=== PATIENT | female | born 1990 | race Caucasian/White ===

== ENCOUNTER 2021-10-31 08:36 | Emergency (ER) | payer OTHER ==
[2021-10-31 08:41] VITALS: BP 141/88; PULSE 78; TEMP 99.2; BMI 30.9
[2021-10-31] MEDS ORDERED: morphine CARPU-JECT 4 MG/1 ML DISP.SYRIN IVPUSH ONE (08:50)
[2021-10-31] MEDS ORDERED: SODIUM CHLORIDE 0.9% 500 ML INFUS.BAG IV ONE (08:52)
[2021-10-31 08:53] LABS: HCG,QUALITATIVE URINE Negative
[2021-10-31] MEDS ORDERED: morphine SULFATE 4 MG/ML VIAL ONE (09:04)
[2021-10-31 09:35] LABS: ALBUMIN 3.9 g/dl (3.4-5.0); BILIRUBIN,TOTAL 0.4 mg/dl (0.2-1); CREATININE 0.6 mg/dl (0.55-1.3); TOT PROT 7.5 g/dl (6.4-8.2)
[2021-10-31 09:39] LABS: CALCIUM OXALATE CRYSTALS RARE /hpf (NONE SEEN); EPITHELIAL CELLS MODERATE /hpf
[2021-10-31 10:36] LABS: BASO % 0.8 % (0-2.0); EOS % 2.6 % (0-4.5); HEMATOCRIT 42.9 % (32.4-45.2); HEMOGLOBIN 14.3 GM/dL (10.7-15.3); LYMPH % 41.8 % (8-40); MCHC 33.3 g/dl (32.0-36.0); MEAN PLT VOLUME 9.1 fl (7.5-11.1); MONO % 5.3 % (3.8-10.2); NEUT % 49.5 % (42.8-82.8); PLATELET COUNT 352 10^3/uL (134-434); RDW 13.6 % (11.6-15.6); WHITE BLOOD COUNT 4.7 K/mm3 (4.0-10.0)
== END 2021-10-31 15:20 | disposition home or self-care (01) ==
LOC: FER 08:36
PROC: 3E033NZ Introduction of Analgesics, Hypnotics, Sedatives into Peripheral Vein, Percutaneous Approach (ICD-10-PCS; principal; 2021-10-31)
DX: N83.202 Unspecified ovarian cyst, left side (principal)
CPT/HCPCS: 36415; 74177-TC; 76830-TC; 76856-TC; 80053; 81003; 81015; 84703; 85025; 87086; 99285-25; Q9967

== ENCOUNTER 2022-12-26 10:39 | Emergency (ER) | payer OTHER ==
[2022-12-26 10:45] VITALS: BP 155/97; PULSE 95; RESP 18; TEMP 98.6; BMI 30.9
[2022-12-26] MEDS ORDERED: CYCLOBENZAPRINE HCL 5 MG TABLET PO ONE (10:49)
[2022-12-26] MEDS ORDERED: CYCLOBENZAPRINE HCL 5 MG TABLET ONE (10:59)
== END 2022-12-26 12:40 | disposition home or self-care (01) ==
LOC: FER 10:39
DX: H70.001 Acute mastoiditis without complications, right ear (principal)
CPT/HCPCS: 70450-TC; 84703; 99283-25

== ENCOUNTER 2024-12-14 11:44 | Emergency (ER) | payer OTHER ==
[2024-12-14] MEDS ORDERED: ACETAMINOPHEN 500 MG TABLET (FP) ONE (11:54)
[2024-12-14] MEDS: ACETAMINOPHEN 500 MG TABLET (FP) PO ONE (11:56)
[2024-12-14 12:09] VITALS: BP 148/122; PULSE 122; RESP 18; TEMP 100.6; BMI 38.7
== END 2024-12-14 12:29 | disposition home or self-care (01) ==
LOC: FER 11:44
DX: R05.9 Cough, unspecified (principal); R09.81 Nasal congestion; R00.0 Tachycardia, unspecified; B34.9 Viral infection, unspecified
CPT/HCPCS: 71046-TC-FY; 99283-25